=== PATIENT | female | born 1970 | race Two or more races ===

== ENCOUNTER 2018-07-20 06:00 | Day surgery (SDC) | payer OTHER ==
[~2018-07-20] VITALS: Ht 167.6 cm; Wt 70.3 kg
[~2018-07-20 06:00] MED LIST: CLONAZEPAM0.5 MG PO; DITROPAN5 MG PO; ENALAPRIL MALEA10 MG PO; ETODOLAC600 MG PO; FEOSOL325 MG PO; FOLIC ACID1 MG PO; GABAPENTIN100 MG PO; GABAPENTIN600 MG PO; JANUMET 50-5001 EACH PO; PERCOCET 5-3251 EACH; PROSAC; PROTONIX40 M1 PO; RESTORIL PO; RISPERDAL1 MG PO; SYNTHROID125 MCG PO; SYNTHROID137 MCG PO; WELLBUTRIN XL300 MG PO; ZANAFLEX2 M1 PO; ZANAFLEX4 M1 PO
[2018-07-20] MEDS ORDERED: PROZAC20 MG PO (08:14)
[2018-07-20] MEDS ORDERED: RESTORIL30 MG PO (08:16)
[2018-07-21] MEDS ORDERED: IBUPROFEN400 MG PO (06:17)
[2018-07-21] MEDS ORDERED: CIPRO500 MG PO (06:21)
== END 2018-07-21 09:00 | disposition home or self-care (01) ==
LOC: CIR.AMB 06:00 → RECOVERY 07:00 → EDSTATUS 09:00 → OB/GYN 13:58 → O/R 13:58 → CIR.AMB 07-21 09:00 → O/R 07-21 09:15 → OB/GYN 07-21 09:15
DX: D25.1 Intramural leiomyoma of uterus (principal); N92.0 Excessive and frequent menstruation with regular cycle; N83.8 Other noninflammatory disorders of ovary, fallopian tube and broad ligament